=== PATIENT | female | born 1940 | race Caucasian/White ===

== ENCOUNTER 2018-01-24 00:56 | Inpatient (IN) | payer OTHER ==
[2018-01-24 01:30] VITALS: BMI 24.0
[2018-01-24] MEDS ORDERED: morphine CARPU-JECT 2 MG/1 ML DISP.SYRIN IVPUSH ONE (01:39)
[2018-01-24] MEDS ORDERED: ONDANSETRON 4 MG/2 ML VIAL IVPUSH ONE (01:39)
--- NOTE | 2018-01-24 01:39 | PDOC ---
History of Present Illness - General Chief Complaint: Pain Stated Complaint: ABD PAIN Time Seen by Provider: 01/24/18 01:37 History Source: Patient Exam Limitations: No Limitations - History of Present Illness Initial Comments: 01/24/18 01:45 Best Contact: PCP: Pmhx:IDDM Pshx: Laparoscopic cholecystectomy, CABG, Allergies:NKDA LMP:N/A 77-year-old female presents to the ER complaining of lower abdominal pain since 1700 hrs. while at rest. Pain is described as 10/10 constant nonradiating discomfort without fever, chills, nausea/vomiting, chest pain, shortness of breath, flank pains, urinary symptoms. There are no alleviating or exacerbating factors. Past History - Past Medical History Allergies/Adverse Reactions: Allergies Allergy/AdvReac Type Severity Reaction Status Date / Time No Known Allergies Allergy Verified 01/24/18 01:30 Home Medications: Ambulatory Orders Aspirin [ASA -] 81 mg PO DAILY 01/24/18 Insulin Glargine,Hum.rec.anlog [Lantus] 40 unit SQ HS 01/24/18 Metformin HCl [Metformin HCl ER] 1,000 mg PO DAILY 01/24/18 Metoprolol Tartrate 25 mg PO DAILY 01/24/18 Simvastatin 20 mg PO DAILY 01/24/18 Cancer: Yes (breast cancer 20 yrs ago) COPD: No HTN: Yes - Suicide/Smoking/Psychosocial Hx Smoking History: Never smoked Have you smoked in the past 12 months: No Information on smoking cessation initiated: No Hx Alcohol Use: No Drug/Substance Use Hx: No Review of Systems - Review of Systems Able to Perform ROS?: Yes Comments:: 01/24/18 01:46 CONSTITUTIONAL: Absent: fever, chills, diaphoresis, generalized weakness, malaise, loss of appetite HEENT: Absent: rhinorrhea, nasal congestion, throat pain, throat swelling, difficulty swallowing, mouth swelling, ear pain, eye pain, visual Changes CARDIOVASCULAR: Absent: chest pain, loss of consciousness, palpitations, irregular heart rate, peripheral edema RESPIRATORY: Absent: cough, shortness of breath, dyspnea with exertion, orthopnea, wheezing, stridor, hemoptysis GASTROINTESTINAL: +Lower abd pain Absent: abdominal distension, nausea, vomiting, diarrhea, constipation, melena , hematochezia GENITOURINARY: Absent: dysuria, frequency, urgency, hesitancy, hematuria, flank pain, genital pain MUSCULOSKELETAL: Absent: myalgia, arthralgia, joint swelling SKIN: Absent: rash, itching, pallor HEMATOLOGIC/IMMUNOLOGIC: Absent: easy bleeding, easy bruising, lymphadenopathy, frequent infections ENDOCRINE: Absent: unexplained weight gain, unexplained weight loss, heat intolerance, cold intolerance NEUROLOGIC: Absent: headache, focal weakness or paresthesias, dizziness, unsteady gait, seizure, mental status changes, bladder or bowel incontinence Is the patient limited Irish proficient: No *Physical Exam - Vital Signs Last Vital Signs Temp Pulse Resp BP Pulse Ox 97.3 F L 96 H 22 165/90 97 01/24/18 01:20 01/24/18 01:20 01/24/18 01:20 01/24/18 01:20 01/24/18 01:20 - Physical Exam Comments: 01/24/18 01:46 GENERAL: Well developed, well nourished. Awake and alert. No acute distress. HEENT: Normocephalic, atraumatic. PERRLA, EOMI. No conjunctival pallor. Sclera are non- icteric. Moist mucous membranes. Oropharynx is clear. NECK: Supple. Full ROM. No JVD. Carotid pulses 2+ and symmetric, without bruits. No thyromegaly. No lymphadenopathy. CARDIOVASCULAR: Regular rate and rhythm. No murmurs, rubs, or gallops. Distal pulses are 2+ and symmetric. PULMONARY: No evidence of respiratory distress. Lungs clear to auscultation bilaterally. No wheezing, rales or rhonchi. ABDOMINAL: +Lower abd pain on palp Soft. Non-distended. No rebound or guarding. No organomegaly. Normoactive bowel sounds. MUSCULOSKELETAL Normal range of motion at all joints. No bony deformities or tenderness. No CVA tenderness. EXTREMITIES: No cyanosis. No clubbing. No edema. No calf tenderness. SKIN: Warm and dry. Normal capillary refill. No rashes. No jaundice. ED Treatment Course - LABORATORY CBC & Chemistry Diagram: 01/24/18 01:43 01/24/18 01:43 - RADIOLOGY Radiograph Interpretation: 01/24/18 03:39 CT abd/pelvis with po/iv contrast: Impression: Small bowel obstruction with possible left lower quadrant transition point but no free air or abscess. Mild cystitis Progress Note - Progress Note Progress Note: 0550hrs: Called [employer]/surgery home improvement contractor [phone] 0552hrs: Microblogged hospitalist for admission 0608hrs: Spoke to Dr. Joy/Surgery home improvement contractor *DC/Admit/Observation/Transfer Diagnosis at time of Disposition: SBO (small bowel obstruction) - Discharge Dispostion Condition at time of disposition: Guarded Admit: Yes - Referrals Referrals: Kris Moreno MD [Primary Care Provider] - - Patient Instructions - Post Discharge Activity
[2018-01-24] MEDS ORDERED: SODIUM CHLORIDE 1,000 ML IV SCH (01:45)
[2018-01-24] MEDS ORDERED: ONDANSETRON 4 MG/2 ML VIAL ONE ×2 (01:50→05:56)
[2018-01-24] MEDS ORDERED: morphine SULFATE 4 MG/ML VIAL ONE ×2 (01:50→09:32)
[2018-01-24 01:57] LABS: BASO % 0.3 % (0-2.0); EOS % 2.6 % (0-4.5); HEMATOCRIT 36.6 % (32.4-45.2); HEMOGLOBIN 12.7 GM/dL (10.7-15.3); LYMPH % 13.2 % (8-40); MCH 28.8 pg (25.7-33.7); MCHC 34.7 g/dl (32.0-36.0); MEAN CELL VOLUME 83.2 fl (80-96); MEAN PLT VOLUME 8.4 fl (7.5-11.1); MONO % 4.7 % (3.8-10.2); NEUT % 79.2 % (42.8-82.8); PLATELET COUNT 132 K/MM3 (134-434); RDW 13.4 % (11.6-15.6); WHITE BLOOD COUNT 8.6 K/mm3 (4.0-10.0)
[2018-01-24 02:21] LABS: ALBUMIN 4.1 g/dl (3.4-5.0); ALK PHOS 69 U/L (45-117); ANION GAP 10 (8-16); BILIRUBIN,TOTAL 0.8 mg/dL (0.2-1.0); BLOOD UREA NITROGEN 15 mg/dL (7-18); CALCIUM 10.5 mg/dL (8.5-10.1); CHLORIDE 97 mmol/L (98-107); CO2 26 mmol/L (21-32); CREATININE 0.7 mg/dL (0.55-1.02); SGOT/AST 22 U/L (15-37); SGPT/ALT 37 U/L (12-78); SODIUM 133 mmol/L (136-145); TOT PROT 7.6 g/dl (6.4-8.2)
[2018-01-24 02:23] LABS: GLUCOSE,RANDOM 352 mg/dL (74-106)
[2018-01-24] MEDS ORDERED: INSULIN REGULAR HUMAN 100 UNITS/ML *VIAL IVPUSH ONE (02:37)
[2018-01-24] MEDS ORDERED: INSULIN REGULAR HUMAN 100 UNITS/ML *VIAL ONE (02:40)
[2018-01-24 05:47] LABS: URINE APPEARANCE CLEAR; URINE BILIRUBIN NEGATIVE (<2.0 mg/dL); URINE COLOR LTYELLOW; URINE GLUCOSE (UA) 3+ (NEGATIVE); URINE KETONE 1+ (NEGATIVE); URINE LEUK ESTERASE NEGATIVE (NEGATIVE); URINE NITRITE NEGATIVE (NEGATIVE); URINE PROTEIN NEGATIVE (NEGATIVE); URINE UROBILINOGEN NEGATIVE mg/dL (0.2-1.0)
[2018-01-24 05:57] LABS: EPI CELLS RARE /HPF (FEW); URINE BACTERIA RARE /hpf (NONE SEEN)
[2018-01-24] MEDS ORDERED: LIDOCAINE HCL 2% JELLY 10 ML CARTRIDGE ONE (06:02)
--- NOTE | 2018-01-24 07:38 | HP ---
CHIEF COMPLAINT: nausea, vomiting, abdominal pain PCP: Dr. Kris Moreno HISTORY OF PRESENT ILLNESS: This is a 77 year old female with PMHx of left breast cancer (s/p lumpectomy, chemo, radiation therapy in 1999), open heart surgery (2009), x2 (1973 ,1974), laproscopic ovarian cyst removal 1999, DM, hyperlipidemia, HTN, who presented to the ED with abdominal pain, nausea, vomiting that began yesterday at 5pm. The patient reports about 3 weeks ago her grandson had a stomach virus which she got a few days after him. She reports she recovered after only vomiting once. Yesterday afternoon she reports trying to alleviate her abdominal pain with gas medication that she ended up throwing up. She reports her last bowel movement was yesterday and it was small and soft. She also reports she passed gas this morning prior to my arrival. She denies any chest pain, diarrhea, headache, dizziness, numbness or tingling in extremities, urinary symptoms. ER course was notable for: (1) Temp 97.3, pulse 96, bp 165/90, resp 22, O2 97% on RA (2) platelets 132 (3) Na 133 (4) Chest X-ray with congestive changes, sternal sutures and clips and NGT with tip below the GE junction. (5) CTAP pending read Recent Travel: denies PAST MEDICAL HISTORY: as above PAST SURGICAL HISTORY: as above Social History: Smoking: denies Alcohol: denies Drugs: denies Family History: Allergies No Known Allergies Allergy (Verified 01/24/18 01:30) HOME MEDICATIONS: Home Medications Medication Instructions Recorded Aspirin [ASA -] 81 mg PO DAILY 01/24/18 Insulin Glargine,Hum.rec.anlog 40 unit SQ HS 01/24/18 [Lantus] Metformin HCl [Metformin HCl ER] 1,000 mg PO DAILY 01/24/18 Metoprolol Tartrate 25 mg PO DAILY 01/24/18 Simvastatin 20 mg PO DAILY 01/24/18 REVIEW OF SYSTEMS CONSTITUTIONAL: Absent: fever, chills, diaphoresis, generalized weakness, malaise, loss of appetite, weight change HEENT: Absent: rhinorrhea, nasal congestion, throat pain, throat swelling, difficulty swallowing, mouth swelling, ear pain, eye pain, visual changes CARDIOVASCULAR: Absent: chest pain, syncope, palpitations, irregular heart rate, lightheadedness , peripheral edema RESPIRATORY: Absent: cough, shortness of breath, dyspnea with exertion, orthopnea, wheezing, stridor, hemoptysis GASTROINTESTINAL: Nausea, vomiting, abdominal pain that began yesterday afternoon. Absent: abdominal distension, diarrhea, constipation, melena, hematochezia GENITOURINARY: Absent: dysuria, frequency, urgency, hesitancy, hematuria, flank pain, genital pain MUSCULOSKELETAL: Absent: myalgia, arthralgia, joint swelling, back pain, neck pain SKIN: Absent: rash, itching, pallor HEMATOLOGIC/IMMUNOLOGIC: Absent: easy bleeding, easy bruising, lymphadenopathy, frequent infections ENDOCRINE: Absent: unexplained weight gain, unexplained weight loss, heat intolerance, cold intolerance NEUROLOGIC: Absent: headache, focal weakness or paresthesias, dizziness, unsteady gait, seizure, mental status changes, bladder or bowel incontinence PSYCHIATRIC: Absent: anxiety, depression, suicidal or homicidal ideation, hallucinations. PHYSICAL EXAMINATION Vital Signs - 24 hr 01/24/18 01/24/18 01:20 07:24 Temperature 97.3 F L 97.9 F Pulse Rate 96 H Pulse Rate [ 80 Left Radial] Respiratory 22 14 Rate Blood Pressure 165/90 Blood Pressure 125/62 [Right Arm] O2 Sat by Pulse 97 95 Oximetry (%) GENERAL: Awake, alert, and fully oriented, in no acute distress. HEAD: Normal with no signs of trauma. EYES: Pupils equal, round and reactive to light, extraocular movements intact, sclera anicteric, conjunctiva clear. No lid lag. EARS, NOSE, THROAT: NG tube in place, clear drainage. NECK: Normal range of motion, supple without lymphadenopathy LUNGS: Breath sounds equal, clear to auscultation bilaterally. No wheezes, and no crackles. No accessory muscle use. HEART: Regular rate and rhythm, normal S1 and S2 ABDOMEN: Soft, mild periumbilical tenderness. Normoactive bowel sounds MUSCULOSKELETAL: Normal range of motion at all joints. No bony deformities or tenderness. No CVA tenderness. UPPER EXTREMITIES: 2+ pulses, warm, well-perfused. No cyanosis. No clubbing. No peripheral edema. LOWER EXTREMITIES: 2+ pulses, warm, well-perfused. No calf tenderness. No peripheral edema. NEUROLOGICAL: Cranial nerves II-XII intact. Normal speech. Gait not observed PSYCHIATRIC: Cooperative. Good eye contact. Appropriate mood and affect. SKIN: Warm, dry, normal turgor, no rashes or lesions noted, normal capillary refill. Laboratory Results - last 24 hr 01/24/18 01/24/18 01/24/18 01:43 01:43 05:00 WBC 8.6 RBC 4.40 Hgb 12.7 Hct 36.6 MCV 83.2 MCH 28.8 MCHC 34.7 RDW 13.4 Plt Count 132 L MPV 8.4 Neutrophils % 79.2 Lymphocytes % 13.2 Monocytes % 4.7 Eosinophils % 2.6 Basophils % 0.3 Sodium 133 L Potassium 5.0 Chloride 97 L Carbon Dioxide 26 Anion Gap 10 BUN 15 Creatinine 0.7 Creat Clearance w eGFR > 60 Random Glucose 352 H* Calcium 10.5 H Total Bilirubin 0.8 AST 22 ALT 37 Alkaline Phosphatase 69 Total Protein 7.6 Albumin 4.1 Urine Color Ltyellow Urine Appearance Clear Urine pH 5.0 Ur Specific [place] 1.020 Urine Protein Negative Urine Glucose (UA) 3+ H Urine Ketones 1+ H Urine Blood 1+ H Urine Nitrite Negative Urine Bilirubin Negative Urine Urobilinogen Negative Ur Leukocyte Esterase Negative Urine WBC (Auto) 5 Urine RBC (Auto) 2 Ur Epithelial Cells Rare Urine Bacteria Rare Assessment: This is a 77 year old female with PMHx of left breast cancer (s/p lumpectomy, chemo, radiation therapy in 1999), open heart surgery (2009), c- section x2 (1973,1974), laproscopic ovarian cyst removal 1999, DM, hyperlipidemia, HTN, who presented to the ED with abdominal pain, nausea, vomiting that began yesterday at 5pm Plan: 1) SBO - Preliminary CTAP (nighthawk read): SBO with possible transition point in LLQ. No abscess or free air seen - Patient reports passing gas this AM, normoactive bowel sounds appreciated - NGT to suction, clear output - NPO - Pain management - IV fluids - F/u surgery consult 2) DM - BGM q4h - ISS q4h, modified as the patient is NPO; will start if BGM >201 3) HTN - Lopressor 5mg IVP q4h prn if SBP >160 - Will resume oral Lopressor once tolerating po 4) F/E/N: - IV fluids - NPO 5) Prophylaxis: - Hold all chemical DVT prophylaxis until evaluated by surgery - SCDs bilaterally 6) Dispo: - Requires continued inpatient care CODE STATUS: FULL CODE Visit type - Emergency Visit Emergency Visit: Yes ED Registration Date: 01/24/18 Care time: The patient presented to the Emergency Department on the above date and was hospitalized for further evaluation of their emergent condition. - New Patient This patient is new to me today: Yes Date on this admission: 01/24/18 - Critical Care Critical Care patient: No Hospitalist Screening - Colonoscopy Questionnaire Colonoscopy Questionnaire: Colonoscopy Questionnaire - Patient: 50 - 75 years old and never had a screening colonoscopy: Unknown History of colon or rectal polyps, or CA: Unknown History of IBD, Crohn's disease or UC: Unknown History of abdominal radiation therapy as a child: Unknown - Relative: 1 with colon or rectal CA, or polyps at age 60 or younger: Unknown Colon or rectal CA diagnosed at age 45 or younger: Unknown Multiple relatives with colon or rectal CA: Unknown - Outcome: Screening Result: Negative Screen
[2018-01-24] MEDS: SODIUM CHLORIDE 1,000 ML IV SCH ×3 (07:47→22:01)
[2018-01-24] MEDS: morphine SULFATE 4 MG/ML VIAL IVPUSH PRN ×2 (09:28→20:06)
--- NOTE | 2018-01-24 10:17 | CONSULT ---
Consult Consult Specialty:: general surgery Referred by:: Marisela Reason for Consultation:: Small bowel Obstruction - History of Present Illness Chief Complaint: abdominal pain and vomiting History of Present Illness: 77 yo female with PMH of left breast cancer (s/p lumpectomy, chemo, radiation therapy in 1999), open heart surgery (2009), x2 (1973,1974), laproscopic ovarian cyst removal 1999, DM, hyperlipidemia, HTN, presented with abdominal pain, nausea, vomiting that began the previous day. The patient reports about 3 weeks ago her grandson had a stomach virus which she got a few days after him. She reports she recovered after only vomiting once. Yesterday afternoon she reports trying to alleviate her abdominal pain with gas medication that she ended up throwing up. She reports her last bowel movement was yesterday and it was small and soft. She also reports she passed gas this morning prior to my arrival. CT scan done in the ED shows some dilatyed proximal SB loops with transition point in the left lower quadrant. We were asked to assess her. - History Source History Provided By: Patient, Medical Record Limitations to Obtaining History: No Limitations - Past Medical History Cardio/Vascular: Yes: HTN, Hyperlipdemia Endocrine: Yes: Diabetes Mellitus - Alcohol/Substance Use Hx Alcohol Use: No - Smoking History Smoking history: Never smoked Have you smoked in the past 12 months: No - Social History Place of : [facility] History of Recent Travel: No Home Medications - Allergies Allergies/Adverse Reactions: Allergies Allergy/AdvReac Type Severity Reaction Status Date / Time No Known Allergies Allergy Verified 01/24/18 01:30 - Home Medications Home Medications: Ambulatory Orders Aspirin [ASA -] 81 mg PO DAILY 01/24/18 Insulin Glargine,Hum.rec.anlog [Lantus] 40 unit SQ HS 01/24/18 Metformin HCl [Metformin HCl ER] 1,000 mg PO DAILY 01/24/18 Metoprolol Tartrate 25 mg PO DAILY 01/24/18 Simvastatin 20 mg PO DAILY 01/24/18 Review of Systems - Review of Systems Constitutional: denies: Chills, Fever Eyes: denies: Blind Spots, Recent Change in Vision HENT: denies: Difficult Swallowing, Throat Pain Neck: denies: Lumps, Swollen Glands Cardiovascular: denies: Chest Pain, Palpitations Respiratory: denies: Cough, SOB Gastrointestinal: reports: Abdominal Pain, Bloating, Indigestion, Nausea, Vomiting Genitourinary: reports: Burning, Dysuria Breasts: reports: No Symptoms Reported. denies: Pain Musculoskeletal: denies: Muscle Pain, Muscle Weakness Integumentary: denies: Lesions, Rash Neurological: denies: Change in LOC, Seizure, Syncope Endocrine: denies: Unexplained Weight Gain, Unexplained Weight Loss Hematology/Lymphatic: denies: Easily Bruised, Excessive Bleeding Psychiatric: denies: Anxiety, Depression Physical Exam Vital Signs: Vital Signs Temperature 97.9 F 01/24/18 07:24 Pulse Rate 80 01/24/18 07:24 Respiratory Rate 14 01/24/18 07:24 Blood Pressure 125/62 01/24/18 07:24 O2 Sat by Pulse Oximetry (%) 95 01/24/18 07:24 Vital Signs Period Temp Pulse Resp BP Sys/Shipley Pulse Ox Last 24 Hr 97.3 F-97.9 F 80-96 14-22 125-165/62-90 95-97 Intake & Output 01/23/18 01/24/18 01/24/18 23:59 07:59 15:59 Weight 140 lb Other: Height 5 ft 4 in Body Mass Index (BMI) 24.0 Weight Measurement Method Est/Stated by Patient Constitutional: Yes: Well Nourished, No Distress, Calm Eyes: Yes: Conjunctiva Clear, EOM Intact HENT: Yes: Atraumatic, Normocephalic Neck: Yes: Supple, Trachea Midline, Other (NGT in place) Cardiovascular: Yes: Regular Rate and Rhythm, S1, S2 Respiratory: Yes: Regular, CTA Bilaterally Gastrointestinal: Yes: Normal Bowel Sounds, Soft, Distention (mild distension). No: Vomiting ...Rectal Exam: Yes: Sphincter Tone Normal. No: Hemorrhoids/External, Induration, Inflammation, Mass Extremities: No: Cool, Cyanosis Edema: No Peripheral Pulses WNL: Yes Neurological: Yes: Alert, Oriented Psychiatric: Yes: Alert, Oriented Labs: CBC, BMP 01/24/18 01:43 01/24/18 01:43 Problem List - Problems (1) SBO (small bowel obstruction) Assessment/Plan: 77yo female MMP and multiple abdominal procedures presenting with 1 day of abdominal pain and vomiting. NPO and IVF hydration NGT decompression to LCWS Antiematic therapy Trend labs Abdominal xray to track progress glycemic control will follow for serial exams Thank you for the opportunity to participate in the care of this patient. Code(s): K56.609 - UNSP INTESTNL OBST, UNSP TO PARTIAL VERSUS COMPLETE OBST (2) Vomiting in adult patient Code(s): R11.10 - VOMITING, UNSPECIFIED (3) Diabetes Code(s): E11.9 - TYPE 2 DIABETES MELLITUS WITHOUT COMPLICATIONS Qualifiers: Diabetes mellitus type: type 2 Diabetes mellitus complication status: without complication (4) HTN (hypertension) Code(s): I10 - ESSENTIAL (PRIMARY) HYPERTENSION (5) HLD (hyperlipidemia) Code(s): E78.5 - HYPERLIPIDEMIA, UNSPECIFIED
--- NOTE | 2018-01-24 10:42 | EKG ---
Test Reason : Blood Pressure : / mmHG Vent. Rate : 083 BPM Atrial Rate : 083 BPM P-R Int : 142 ms QRS Dur : 122 ms QT Int : 392 ms P-R-T Axes : 060 091 -14 degrees QTc Int : 460 ms NORMAL SINUS RHYTHM RIGHT BUNDLE BRANCH BLOCK CANNOT RULE OUT INFERIOR INFARCT , AGE UNDETERMINED T WAVE ABNORMALITY, CONSIDER LATERAL ISCHEMIA ABNORMAL ECG NO PREVIOUS ECGS AVAILABLE Confirmed by BETH WALKER, ARINA ([id number]) on 01/24/2018 10:42:01 AM Referred By: Confirmed By:ARINA CAMPOS MD
[2018-01-24] MEDS: INSULIN SLIDING SCALE (NOVOLOG) 1 VIAL SQ SCH ×4 (12:18→21:51)
[2018-01-25] MEDS: morphine SULFATE 4 MG/ML VIAL IVPUSH PRN ×5 (00:13→23:22)
[2018-01-25] MEDS: INSULIN SLIDING SCALE (NOVOLOG) 1 VIAL SQ SCH ×6 (01:12→21:58)
[2018-01-25 07:55] LABS: HEMATOCRIT 31.1 % (32.4-45.2); HEMOGLOBIN 10.7 GM/dL (10.7-15.3); MCH 28.4 pg (25.7-33.7); MCHC 34.4 g/dl (32.0-36.0); MEAN CELL VOLUME 82.5 fl (80-96); MEAN PLT VOLUME 8.6 fl (7.5-11.1); PLATELET COUNT 110 K/MM3 (134-434); RBC 3.77 M/mm3 (3.60-5.2); RDW 13.7 % (11.6-15.6); WHITE BLOOD COUNT 6.3 K/mm3 (4.0-10.0)
[2018-01-25 08:15] LABS: ANION GAP 7 (8-16); BLOOD UREA NITROGEN 10 mg/dL (7-18); CALCIUM 8.8 mg/dL (8.5-10.1); CHLORIDE 105 mmol/L (98-107); CO2 29 mmol/L (21-32); GLUCOSE,RANDOM 201 mg/dL (74-106); MAGNESIUM 1.3 mg/dL (1.8-2.4); POTASSIUM 3.5 mmol/L (3.5-5.1); SODIUM 141 mmol/L (136-145)
[2018-01-25 08:21] LABS: ALK PHOS 54 U/L (45-117); BILIRUBIN,TOTAL 0.5 mg/dL (0.2-1.0); CREATININE 0.4 mg/dL (0.55-1.02); SGOT/AST 32 U/L (15-37); SGPT/ALT 31 U/L (12-78); TOT PROT 5.7 g/dl (6.4-8.2)
[2018-01-25] MEDS ORDERED: ACETAMINOPHEN 1000 MG/100 ML VIAL (NON FORMULARY) IVPB ONE (11:21)
[2018-01-25] MEDS: SODIUM CHLORIDE 1,000 ML IV SCH (11:29)
[2018-01-25] MEDS: METOPROLOL TARTRATE 5 MG/5 ML VIAL IVPUSH PRN (11:44)
[2018-01-25] MEDS ORDERED: PATIENT'S OWN MEDICATION (NON-FORMULARY) (Combigan 0.2%-0.5% Eye Drops 1 DROP) OU SCH (12:00)
--- NOTE | 2018-01-25 12:09 | PN ---
Progress Note (short form) - Note Progress Note: Subjective: The patient was seen and examined at the bedside, she reports headache today. She states she passed gas this morning. Abdominal x-ray with no sign of small bowel obstruction Last BM thursday morning Current Medications Generic Name Dose Route Start Last Admin Trade Name Freq PRN Reason Stop Dose Admin Sodium Chloride 1,000 mls @ 100 mls/hr 01/24/18 07:45 01/25/18 11:29 Normal Saline - IV 100 mls/hr ASDIR MARK Administration Insulin Aspart 1 vial 01/24/18 10:00 01/25/18 05:46 Novolog Vial Sliding Scale - SQ Not Given Q4HPO MARK Protocol Metoprolol Tartrate 5 mg 01/24/18 07:35 01/25/18 11:44 Lopressor Injection - IVPUSH 5 mg Q4H PRN Administration HYPERTENSION Morphine Sulfate 1 mg 01/24/18 09:07 01/25/18 05:40 Morphine Sulfate IVPUSH 1 mg Q4H PRN Administration PAIN LEVEL 6-10 Non-Formulary Medication 1 drop 01/25/18 12:00 Combigan 0.2%-0.5% Eye Drops OU BID MARK Non-Formulary Medication 1 drop 01/25/18 22:00 Lumigan OU HS MARK Objective: Vital Signs Period Temp Pulse Resp BP Sys/Shipley Pulse Ox Last 24 Hr 98.1 F-98.5 F 78-87 -18 128-173/68-83 98 Physical Exam: General: NAD, A&Ox3 Lungs: CTA bilaterally Heart: RRR, S1S2 Abd: Soft, non-tender, non-distended. Hypoactive bowel sounds CBCD WBC 6.3 K/mm3 (4.0-10.0) 01/25/18 06:35 RBC 3.77 M/mm3 (3.60-5.2) 01/25/18 06:35 Hgb 10.7 GM/dL (10.7-15.3) D 01/25/18 06:35 Hct 31.1 % (32.4-45.2) L D 01/25/18 06:35 MCV 82.5 fl (80-96) 01/25/18 06:35 MCHC 34.4 g/dl (32.0-36.0) 01/25/18 06:35 RDW 13.7 % (11.6-15.6) 01/25/18 06:35 Plt Count 110 K/MM3 (134-434) L 01/25/18 06:35 MPV 8.6 fl (7.5-11.1) 01/25/18 06:35 CMP Sodium 141 mmol/L (136-145) 01/25/18 06:35 Potassium 3.5 mmol/L (3.5-5.1) 01/25/18 06:35 Chloride 105 mmol/L (98-107) 01/25/18 06:35 Carbon Dioxide 29 mmol/L (21-32) 01/25/18 06:35 Anion Gap 7 (8-16) L 01/25/18 06:35 BUN 10 mg/dL (7-18) 01/25/18 06:35 Creatinine 0.4 mg/dL (0.55-1.02) L 01/25/18 06:35 Creat Clearance w eGFR > 60 (>60) 01/25/18 06:35 Random Glucose 201 mg/dL (74-106) H 01/25/18 06:35 Calcium 8.8 mg/dL (8.5-10.1) 01/25/18 06:35 Total Bilirubin 0.5 mg/dL (0.2-1.0) D 01/25/18 06:35 AST 32 U/L (15-37) 01/25/18 06:35 ALT 31 U/L (12-78) 01/25/18 06:35 Alkaline Phosphatase 54 U/L (45-117) 01/25/18 06:35 Total Protein 5.7 g/dl (6.4-8.2) L 01/25/18 06:35 Albumin 3.0 g/dl (3.4-5.0) L 01/25/18 06:35 Assessment: This is a 77 year old female with PMHx of left breast cancer (s/p lumpectomy, chemo, radiation therapy in 1999), open heart surgery (2009), c- section x2 (1973,1974), laproscopic ovarian cyst removal 1999, DM, hyperlipidemia, HTN, who presented to the ED with abdominal pain, nausea, vomiting that began yesterday at 5pm Plan: 1) SBO - Abd x-ray today shows its resolved - CTAP: Dilated distal small bowel loops with fecalosis measuring up to 3cm in diameter consistent with distal small bowel obstruction - Patient reports passing gas this AM, hypoactive bowel sounds - NGT to suction, brown fecal smelling output, 400cc output today so far - NPO - Pain management - IV fluids - Appreciate surgery consult 2) DM - BGM q4h - ISS q4h, modified as the patient is NPO; will start if BGM >201 3) HTN - Lopressor 5mg IVP q4h prn if SBP >160 - Will resume oral Lopressor once tolerating po 4) F/E/N: - IV fluids - NPO 5) Prophylaxis: - Hold all chemical DVT prophylaxis until evaluated by surgery - SCDs bilaterally 6) Dispo: - Requires continued inpatient care CODE STATUS: FULL CODE Visit type - Emergency Visit Emergency Visit: Yes ED Registration Date: 01/24/18 Care time: The patient presented to the Emergency Department on the above date and was hospitalized for further evaluation of their emergent condition. - New Patient This patient is new to me today: No - Critical Care Critical Care patient: No
--- NOTE | 2018-01-25 12:47 | PN ---
Progress Note, Physician Chief Complaint: vomiting History of Present Illness: 77 yo female with PMH of left breast cancer (s/p lumpectomy, chemo, radiation therapy in 1999), open heart surgery (2009), x2 (1973,1974), laproscopic ovarian cyst removal 1999, DM, hyperlipidemia, HTN, presented with abdominal pain, nausea, vomiting that began the previous day. NGT is draining feculant material, she has not had regular flatus or BM yet. - Current Medication List Current Medications: Active Medications Sodium Chloride (Normal Saline -) 1,000 mls @ 100 mls/hr IV ASDIR MARK Last Admin: 01/25/18 11:29 Dose: 100 mls/hr Insulin Aspart (Novolog Vial Sliding Scale -) 1 vial SQ Q4HPO MARK PRN Reason: Protocol Last Admin: 01/25/18 12:15 Dose: Not Given Metoprolol Tartrate (Lopressor Injection -) 5 mg IVPUSH Q4H PRN PRN Reason: HYPERTENSION Last Admin: 01/25/18 11:44 Dose: 5 mg Morphine Sulfate (Morphine Sulfate) 1 mg IVPUSH Q4H PRN PRN Reason: PAIN LEVEL 6-10 Last Admin: 01/25/18 05:40 Dose: 1 mg Non-Formulary Medication (Combigan 0.2%-0.5% Eye Drops) 1 drop OU BID MARK Non-Formulary Medication (Lumigan) 1 drop OU HS MARK - Objective Vital Signs: Vital Signs Temperature 98.2 F 01/25/18 10:00 Pulse Rate 81 01/25/18 11:44 Respiratory Rate 18 01/25/18 10:00 Blood Pressure 173/83 01/25/18 11:44 O2 Sat by Pulse Oximetry (%) 98 01/24/18 21:00 Vital Signs Period Temp Pulse Resp BP Sys/Shipley Pulse Ox Last 24 Hr 98.1 F-98.5 F 78-87 - 128-173/68-83 98 Intake & Output 01/24/18 01/25/18 01/25/18 23:59 07:59 15:59 Intake Total 400 1200 Output Total 250 400 Balance 150 800 Intake: IV 400 1200 Normal Saline - 1,000 ml 400 1200 @ 100 mls/hr IV ASDIR MARK Rx#:[id number] Oral 0 Output: Gastric Drainage 250 400 Other: Voiding Method Toilet Toilet # Unmeasured Voids Void 500 300 Bowel Movement No No Constitutional: Yes: Well Nourished, No Distress, Calm Eyes: Yes: Conjunctiva Clear, EOM Intact HENT: Yes: Atraumatic, Normocephalic Neck: Yes: Supple, Trachea Midline Cardiovascular: Yes: Regular Rate and Rhythm, S1, S2 Respiratory: Yes: Regular, CTA Bilaterally Gastrointestinal: Yes: Normal Bowel Sounds, Soft, Other (NGT in place feculant output.). No: Distention, Tenderness, Tenderness, Epigastrium, Tenderness, Rebound ...Rectal Exam: Yes: Deferred Genitourinary: No: CVA Tenderness - Left, CVA Tenderness - Right Extremities: Yes: Cool, Cyanosis Edema: No Peripheral Pulses WNL: Yes Peripheral Pulses: Left Doralis Pedis: 2+, Right Dorsalis Pedis: 2+ Integumentary: No: Jaundice, Rash Neurological: Yes: Alert, Oriented Psychiatric: Yes: Alert, Oriented Labs: CBC, BMP 01/25/18 06:35 01/25/18 06:35 Problem List - Problems (1) SBO (small bowel obstruction) Assessment/Plan: 77yo female MMP and multiple abdominal procedures presenting with 1 day of abdominal pain and vomiting. NPO and IVF hydration NGT decompression to LCWS Antiematic therapy Trend labs Abdominal xray to track progress glycemic control will follow for serial exams Code(s): K56.609 - UNSP INTESTNL OBST, UNSP TO PARTIAL VERSUS COMPLETE OBST (2) Vomiting in adult patient Code(s): R11.10 - VOMITING, UNSPECIFIED (3) Diabetes Code(s): E11.9 - TYPE 2 DIABETES MELLITUS WITHOUT COMPLICATIONS Qualifiers: Diabetes mellitus type: type 2 Diabetes mellitus complication status: without complication (4) HTN (hypertension) Code(s): I10 - ESSENTIAL (PRIMARY) HYPERTENSION (5) HLD (hyperlipidemia) Code(s): E78.5 - HYPERLIPIDEMIA, UNSPECIFIED
[2018-01-25] MEDS ORDERED: MAGNESIUM SULF 50% (8.12 MEQ/2 ML-1 GM VIAL) IVPB ONE (12:55)
[2018-01-25] MEDS ORDERED: MAGNESIUM SULFATE IN WATER 2 GM/50 ML IVPB IVPB ONE (13:30)
[2018-01-25] MEDS ORDERED: POTASSIUM PHOSPHATE 15 MM in SODIUM CHLORIDE 250 ML IVPB ONE (14:00)
[2018-01-25] MEDS: TIMOLOL 0.5% OPHTHALMIC SOL 5 ML BOTTLE OU SCH ×2 (14:53→21:57)
[2018-01-25] MEDS: BRIMONIDINE TARTRATE 0.2% OPHTHALMIC 5 ML BOTTLE OU SCH ×2 (14:54→21:57)
[2018-01-25] MEDS ORDERED: PT OWN MED DRAWER 7, Y5N ONE ×2 (15:19→21:48)
[2018-01-25] MEDS: TETRACAINE/BENZOCAINE/BUTAMBEN 20 GM SPR TP SCH (17:23)
[2018-01-25] MEDS: LATANOPROST 0.005% OPHTH SOLN 2.5ML BOTTLE OU SCH (21:57)
[2018-01-26] MEDS: INSULIN SLIDING SCALE (NOVOLOG) 1 VIAL SQ SCH ×6 (02:54→22:10)
[2018-01-26] MEDS: morphine SULFATE 4 MG/ML VIAL IVPUSH PRN ×4 (02:57→21:55)
[2018-01-26] MEDS: SODIUM CHLORIDE 1,000 ML IV SCH (06:44)
[2018-01-26 07:49] LABS: BASO % 0.4 % (0-2.0); EOS % 7.4 % (0-4.5); HEMATOCRIT 33.1 % (32.4-45.2); HEMOGLOBIN 11.4 GM/dL (10.7-15.3); LYMPH % 23.7 % (8-40); MCH 28.4 pg (25.7-33.7); MCHC 34.4 g/dl (32.0-36.0); MEAN CELL VOLUME 82.7 fl (80-96); MEAN PLT VOLUME 7.9 fl (7.5-11.1); MONO % 11.1 % (3.8-10.2); NEUT % 57.4 % (42.8-82.8); PLATELET COUNT 122 K/MM3 (134-434); RDW 13.3 % (11.6-15.6)
[2018-01-26 08:49] LABS: CHLORIDE 108 mmol/L (98-107); POTASSIUM 3.8 mmol/L (3.5-5.1); SODIUM 143 mmol/L (136-145)
[2018-01-26] MEDS ORDERED: ACETAMINOPHEN 1000 MG/100 ML VIAL (NON FORMULARY) IVPB ONE (09:00)
[2018-01-26 09:09] LABS: ALK PHOS 55 U/L (45-117); ANION GAP 6 (8-16); BLOOD UREA NITROGEN 10 mg/dL (7-18); CO2 29 mmol/L (21-32); CREATININE 0.4 mg/dL (0.55-1.02); GLUCOSE,RANDOM 130 mg/dL (74-106); MAGNESIUM 1.5 mg/dL (1.8-2.4); PHOSPHOROUS 2.1 mg/dL (2.5-4.9); SGOT/AST 21 U/L (15-37); SGPT/ALT 24 U/L (12-78); TOT PROT 5.9 g/dl (6.4-8.2)
--- NOTE | 2018-01-26 09:26 | PN ---
Physical Exam: SUBJECTIVE: Patient seen and examined. She has some discomfort from the NGT. Denies vomiting, abd pain. Daughter at bedside. OBJECTIVE: Vital Signs Period Temp Pulse Resp BP Sys/Shipley Pulse Ox Last 24 Hr 98.2 F-99.0 F 71-82 18-18 113-173/53-89 95 PE Neuro: alert, awake, cn 2-12intact HEENT: NGT brown outpt Pulm: CTAB CV: s1 s2 rrr no mrg Abd: s nt + bS Ext: warm, no le edema Laboratory Results - last 24 hr 01/26/18 06:15 WBC 5.0 RBC 4.00 Hgb 11.4 Hct 33.1 MCV 82.7 MCH 28.4 MCHC 34.4 RDW 13.3 Plt Count 122 L MPV 7.9 Neutrophils % 57.4 D Lymphocytes % 23.7 D Monocytes % 11.1 H D Eosinophils % 7.4 H D Basophils % 0.4 POC Glucometer Active Medications Generic Name Dose Route Start Last Admin Trade Name Nabor PRN Reason Stop Dose Admin Acetaminophen 1,000 mg 01/26/18 09:00 Ofirmev Injection - IVPB 01/26/18 09:01 ONCE ONE Benzocaine/Butamben/Tetracaine HCl 1 spray 01/25/18 16:00 01/25/18 17:23 Cetacaine [place] - TP 1 spray DAILY MARK Administration Benzocaine/Menthol 1 each 01/25/18 14:50 Cepacol Lozenge - MM PRN PRN SORE THROAT Brimonidine Tartrate 1 drop 01/25/18 13:00 01/25/18 21:57 Alphagan 0.2% - OU 1 drop BID MARK Administration Sodium Chloride 1,000 mls @ 100 mls/hr 01/24/18 07:45 01/26/18 06:44 Normal Saline - IV 100 mls/hr ASDIR MARK Administration Insulin Aspart 1 vial 01/24/18 10:00 01/26/18 05:49 Novolog Vial Sliding Scale - SQ Not Given Q4HPO MARK Protocol Latanoprost 1 drop 01/25/18 22:00 01/25/18 21:57 Xalatan 0.005% Eye Drops - OU 1 drop HS MARK Administration Metoprolol Tartrate 5 mg 01/24/18 07:35 01/25/18 11:44 Lopressor Injection - IVPUSH 5 mg Q4H PRN Administration HYPERTENSION Morphine Sulfate 1 mg 01/24/18 09:07 01/26/18 02:57 Morphine Sulfate IVPUSH 1 mg Q4H PRN Administration PAIN LEVEL 6-10 Timolol Maleate 1 drop 01/25/18 13:00 01/25/18 21:57 Timoptic 0.5% OU 1 drop BID MARK Administration Assessment: 77 year old female with PMHx of left breast cancer (s/p lumpectomy, chemo, radiation therapy in 1999), open heart surgery (2009), x2 (1973 ,1974), laproscopic ovarian cyst removal 1999, DM, hyperlipidemia, HTN, admitted with abdominal pain, nausea, vomiting. Plan: 1. SBO - Repeat abd xray today, ?sbo not resolved - Increase outpt overnight, maintain NGT to suction - NPO - Pain management - IV fluids - Will discuss further imaging with surgery 2. DM II - BGM ACHS - ISS q4h, modified as the patient is NPO; will start if BGM >201 3. HTN - Lopressor 5mg IVP q4h prn if SBP >160 - Will resume oral Lopressor once tolerating po 4. DVT ppx - Hold all chemical DVT prophylaxis until evaluated by surgery - SCDs bilaterally CODE STATUS: FULL CODE Visit type - Emergency Visit Emergency Visit: Yes ED Registration Date: 01/24/18 Care time: The patient presented to the Emergency Department on the above date and was hospitalized for further evaluation of their emergent condition. - New Patient This patient is new to me today: Yes Date on this admission: 01/26/18 - Critical Care Critical Care patient: No
[2018-01-26] MEDS ORDERED: POTASSIUM PHOSPHATE 15 MM in SODIUM CHLORIDE 250 ML IVPB ONE (10:00)
[2018-01-26] MEDS ORDERED: PT OWN MED DRAWER 7, Y5N ONE ×3 (10:18→22:56)
[2018-01-26] MEDS: TETRACAINE/BENZOCAINE/BUTAMBEN 20 GM SPR TP SCH (10:28)
[2018-01-26] MEDS: METOPROLOL TARTRATE 5 MG/5 ML VIAL IVPUSH PRN ×2 (10:28→22:49)
[2018-01-26] MEDS: TIMOLOL 0.5% OPHTHALMIC SOL 5 ML BOTTLE OU SCH ×2 (10:29→22:01)
[2018-01-26] MEDS: BRIMONIDINE TARTRATE 0.2% OPHTHALMIC 5 ML BOTTLE OU SCH ×2 (10:29→22:01)
[2018-01-26] MEDS: BENZOCAINE/MENTH/CETYLPYRD CL 1 EACH LOZENGE MM PRN (10:29)
[2018-01-26] MEDS: MAGNESIUM 1GM/D5W 100ML - 100 ML IVPB IVPB SCH ×2 (12:17→13:44)
--- NOTE | 2018-01-26 13:50 | PN ---
Progress Note, Physician Chief Complaint: vomiting History of Present Illness: 77 yo female with PMH of left breast cancer (s/p lumpectomy, chemo, radiation therapy in 1999), open heart surgery (2009), x2 (1973,1974), laproscopic ovarian cyst removal 1999, DM, hyperlipidemia, HTN, presented with abdominal pain, nausea, vomiting that began the previous day. NGT is draining feculant material, she has not had regular flatus or BM yet. - Current Medication List Current Medications: Active Medications Benzocaine/Butamben/Tetracaine HCl (Cetacaine [place] -) 1 spray TP DAILY [facility] Last Admin: 01/26/18 10:28 Dose: 1 spray Benzocaine/Menthol (Cepacol Lozenge -) 1 each MM PRN PRN PRN Reason: SORE THROAT Last Admin: 01/26/18 10:29 Dose: 1 each Brimonidine Tartrate (Alphagan 0.2% -) 1 drop OU BID [facility] Last Admin: 01/26/18 10:29 Dose: 1 drop Sodium Chloride (Normal Saline -) 1,000 mls @ 100 mls/hr IV ASDIR MARK Last Admin: 01/26/18 06:44 Dose: 100 mls/hr Potassium Phosphate 15 mm/ (Sodium Chloride) 255 mls @ 62.5 mls/hr IVPB ONCE ONE Stop: 01/26/18 14:04 Insulin Aspart (Novolog Vial Sliding Scale -) 1 vial SQ Q4HPO MARK PRN Reason: Protocol Last Admin: 01/26/18 12:20 Dose: Not Given Latanoprost (Xalatan 0.005% Eye Drops -) 1 drop OU HS [facility] Last Admin: 01/25/18 21:57 Dose: 1 drop Metoprolol Tartrate (Lopressor Injection -) 5 mg IVPUSH Q4H PRN PRN Reason: HYPERTENSION Last Admin: 01/26/18 10:28 Dose: 5 mg Morphine Sulfate (Morphine Sulfate) 1 mg IVPUSH Q4H PRN PRN Reason: PAIN LEVEL 6-10 Last Admin: 01/26/18 09:04 Dose: 1 mg Timolol Maleate (Timoptic 0.5%) 1 drop OU BID MARK Last Admin: 01/26/18 10:29 Dose: 1 drop - Objective Vital Signs: Vital Signs Temperature 98.2 F 01/26/18 10:00 Pulse Rate 65 01/26/18 13:02 Respiratory Rate 18 01/26/18 10:00 Blood Pressure 136/61 01/26/18 13:02 O2 Sat by Pulse Oximetry (%) 95 01/25/18 21:00 Vital Signs Period Temp Pulse Resp BP Sys/Shipley Pulse Ox Last 24 Hr 98.2 F-98.9 F 65-82 18-18 113-192/53-89 95 Intake & Output 01/25/18 01/26/18 01/26/18 23:59 07:59 15:59 Intake Total 1450 700 Output Total 725 900 Balance 725 -200 Intake: IV 1000 700 Normal Saline - 1,000 ml 1000 700 @ 100 mls/hr IV ASDIR MARK Rx#:[id number] IVPB 450 Output: Gastric Drainage 725 900 Other: Voiding Method Toilet # Unmeasured Voids Void 2 Constitutional: Yes: Well Nourished, No Distress, Calm Eyes: Yes: Conjunctiva Clear, EOM Intact HENT: Yes: Atraumatic, Normocephalic Neck: Yes: Supple, Trachea Midline Cardiovascular: Yes: Regular Rate and Rhythm, S1, S2 Respiratory: Yes: Regular, CTA Bilaterally Gastrointestinal: Yes: Normal Bowel Sounds, Soft, Abdomen, Obese, Distention ( minimal), Tenderness ...Rectal Exam: Yes: Deferred Genitourinary: No: CVA Tenderness - Left, CVA Tenderness - Right Extremities: No: Cool, Cyanosis Edema: No Peripheral Pulses WNL: Yes Peripheral Pulses: Left Doralis Pedis: 2+, Right Dorsalis Pedis: 2+ Wound/Incision: Yes: Clean/Dry, Well Approximated Neurological: Yes: Alert, Oriented Psychiatric: Yes: Alert, Oriented Labs: CBC, BMP 01/26/18 06:15 01/26/18 06:15 - ....Imaging X-ray: Report Reviewed, Image Reviewed (non obstructive pattern, NGT in stomach) Problem List - Problems (1) SBO (small bowel obstruction) Assessment/Plan: 77yo female MMP and multiple abdominal procedures presenting with 1 day of abdominal pain and vomiting. NGT still very high output 800-900 per shift. No signs of peritonitis. Will allow 2 more days to resolve this obstruction before considering surgery. NPO and IVF hydration NGT decompression to LCWS Antiematic therapy Trend labs Abdominal xray to track progress glycemic control will follow for serial exams Code(s): K56.609 - UNSP INTESTNL OBST, UNSP TO PARTIAL VERSUS COMPLETE OBST (2) Vomiting in adult patient Code(s): R11.10 - VOMITING, UNSPECIFIED (3) Diabetes Code(s): E11.9 - TYPE 2 DIABETES MELLITUS WITHOUT COMPLICATIONS Qualifiers: Diabetes mellitus type: type 2 Diabetes mellitus complication status: without complication (4) HTN (hypertension) Code(s): I10 - ESSENTIAL (PRIMARY) HYPERTENSION (5) HLD (hyperlipidemia) Code(s): E78.5 - HYPERLIPIDEMIA, UNSPECIFIED
[2018-01-26] MEDS: LATANOPROST 0.005% OPHTH SOLN 2.5ML BOTTLE OU SCH (22:01)
[2018-01-27] MEDS ORDERED: PT OWN MED DRAWER 7, Y5N ONE ×3 (01:25→10:14)
[2018-01-27] MEDS: SODIUM CHLORIDE 1,000 ML IV SCH ×2 (04:20→09:58)
[2018-01-27] MEDS: INSULIN SLIDING SCALE (NOVOLOG) 1 VIAL SQ SCH ×5 (05:17→21:45)
[2018-01-27] MEDS: METOPROLOL TARTRATE 5 MG/5 ML VIAL IVPUSH PRN ×2 (06:16→16:38)
[2018-01-27 08:04] LABS: ANION GAP 9 (8-16); BILIRUBIN,TOTAL 0.6 mg/dL (0.2-1.0); BLOOD UREA NITROGEN 13 mg/dL (7-18); CALCIUM 8.7 mg/dL (8.5-10.1); CHLORIDE 106 mmol/L (98-107); CO2 25 mmol/L (21-32); CREATININE 0.4 mg/dL (0.55-1.02); GLUCOSE,RANDOM 173 mg/dL (74-106); MAGNESIUM 1.5 mg/dL (1.8-2.4); PHOSPHOROUS 2.6 mg/dL (2.5-4.9); POTASSIUM 3.7 mmol/L (3.5-5.1); SGOT/AST 15 U/L (15-37); SGPT/ALT 22 U/L (12-78); SODIUM 140 mmol/L (136-145)
[2018-01-27 08:05] LABS: ALK PHOS 56 U/L (45-117)
[2018-01-27] MEDS: morphine SULFATE 4 MG/ML VIAL IVPUSH PRN ×2 (08:50→17:59)
[2018-01-27] MEDS: BRIMONIDINE TARTRATE 0.2% OPHTHALMIC 5 ML BOTTLE OU SCH ×2 (10:05→21:44)
[2018-01-27] MEDS: TIMOLOL 0.5% OPHTHALMIC SOL 5 ML BOTTLE OU SCH ×2 (10:05→21:44)
[2018-01-27] MEDS: TETRACAINE/BENZOCAINE/BUTAMBEN 20 GM SPR TP SCH (10:05)
[2018-01-27] MEDS: BENZOCAINE/MENTH/CETYLPYRD CL 1 EACH LOZENGE MM PRN (10:08)
[2018-01-27] MEDS ORDERED: MAGNESIUM SULF 50% (8.12 MEQ/2 ML-1 GM VIAL) IVPB ONE (11:16)
--- NOTE | 2018-01-27 11:19 | PN ---
Physical Exam: SUBJECTIVE: Patient seen and examined. She has throat and head pain. no n/v. Canister was changed at 2am. OBJECTIVE: Vital Signs Period Temp Pulse Resp BP Sys/Shipley Pulse Ox Last 24 Hr 97.8 F-99.8 F 65-84 18-20 136-190/61-104 100 PE Neuro: alert, awake, cn 2-12intact HEENT: NGT brown, fecal smelling odor outpt Pulm: CTAB CV: s1 s2 rrr no mrg Abd: s nt + bS Ext: warm, no le edema Laboratory Results - last 24 hr 01/27/18 06:49 Sodium 140 Potassium 3.7 Chloride 106 Carbon Dioxide 25 Anion Gap 9 BUN 13 Creatinine 0.4 L Creat Clearance w eGFR > 60 POC Glucometer Random Glucose 173 H Calcium 8.7 Phosphorus 2.6 Magnesium 1.5 L Total Bilirubin 0.6 D AST 15 ALT 22 Alkaline Phosphatase 56 Total Protein 6.0 L Albumin 3.0 L Active Medications Generic Name Dose Route Start Last Admin Trade Name Freq PRN Reason Stop Dose Admin Benzocaine/Butamben/Tetracaine HCl 1 spray 01/25/18 16:00 01/27/18 10:05 Cetacaine [place] - TP 1 spray DAILY MARK Administration Benzocaine/Menthol 1 each 01/25/18 14:50 01/27/18 10:08 Cepacol Lozenge - MM 1 each PRN PRN Administration SORE THROAT Brimonidine Tartrate 1 drop 01/25/18 13:00 01/27/18 10:05 Alphagan 0.2% - OU 1 drop BID MARK Administration Sodium Chloride 1,000 mls @ 100 mls/hr 01/24/18 07:45 01/27/18 09:58 Normal Saline - IV Not Given ASDIR MARK Insulin Aspart 1 vial 01/24/18 10:00 01/27/18 09:59 Novolog Vial Sliding Scale - SQ Not Given Q4HPO [facility] Protocol Latanoprost 1 drop 01/25/18 22:00 01/26/18 22:01 Xalatan 0.005% Eye Drops - OU 1 drop HS MARK Administration Magnesium Sulfate 2 gm 01/27/18 11:16 Magnesium Sulfate IVPB 01/27/18 11:17 ONCE ONE Metoprolol Tartrate 5 mg 01/24/18 07:35 01/27/18 06:16 Lopressor Injection - IVPUSH 5 mg Q4H PRN Administration HYPERTENSION Timolol Maleate 1 drop 01/25/18 13:00 01/27/18 10:05 Timoptic 0.5% OU 1 drop BID MARK Administration Assessment: 77 year old female with PMHx of left breast cancer (s/p lumpectomy, chemo, radiation therapy in 1999), open heart surgery (2009), x2 (1973 ,1974), laproscopic ovarian cyst removal 1999, DM, hyperlipidemia, HTN, admitted with abdominal pain, nausea, vomiting. Plan: 1. SBO - Family refusing Abd xray, would like CTAP - Defer to surgery for further imaging - If obstruction not resolved will likely need surgery - Maintain NGT to suction - NPO - Pain management - IV fluids 2. DM II - BGM, ISS, ACHS 3. HTN - Hold fluids this AM d/t elevated BP - Change to d5 /2 ns - Continue Lopressor 5mg IVP q4h prn if SBP >160 - Will resume oral Lopressor once tolerating po 4. DVT ppx - Hold all chemical DVT prophylaxis until evaluated by surgery - SCDs bilaterally CODE STATUS: FULL CODE Visit type - Emergency Visit Emergency Visit: Yes ED Registration Date: 01/24/18 Care time: The patient presented to the Emergency Department on the above date and was hospitalized for further evaluation of their emergent condition. - New Patient This patient is new to me today: No - Critical Care Critical Care patient: No
[2018-01-27] MEDS ORDERED: DEXTROSE 5%-0.45% SALINE 1,000 ML IV SCH (11:30)
[2018-01-27] MEDS: MAGNESIUM 1GM/D5W - 1 GM/100 ML IVPB IVPB SCH ×2 (12:24→13:23)
--- NOTE | 2018-01-27 13:41 | PN ---
Progress Note, Physician Chief Complaint: vomiting History of Present Illness: 77 yo female with PMH of left breast cancer (s/p lumpectomy, chemo, radiation therapy in 1999), open heart surgery (2009), x2 (1973,1974), laproscopic ovarian cyst removal 1999, DM, hyperlipidemia, HTN, presented with abdominal pain, nausea, vomiting that began the previous day. NGT is draining feculant material, she has not had regular flatus or BM yet. - Current Medication List Current Medications: Active Medications Benzocaine/Butamben/Tetracaine HCl (Cetacaine [place] -) 1 spray TP DAILY [facility] Last Admin: 01/27/18 10:05 Dose: 1 spray Benzocaine/Menthol (Cepacol Lozenge -) 1 each MM PRN PRN PRN Reason: SORE THROAT Last Admin: 01/27/18 10:08 Dose: 1 each Brimonidine Tartrate (Alphagan 0.2% -) 1 drop OU BID [facility] Last Admin: 01/27/18 10:05 Dose: 1 drop Dextrose/Sodium Chloride (D5-1/2ns -) 1,000 mls @ 83 mls/hr IV ASDIR MARK Last Admin: 01/27/18 12:09 Dose: 83 mls/hr Magnesium Sulfate/Dextrose (Magnesium 1gm/D5w -) 1 gm in 100 mls @ 100 mls/hr IVPB Q1H MARK Stop: 01/27/18 13:44 Last Admin: 01/27/18 13:23 Dose: 100 mls/hr Insulin Aspart (Novolog Vial Sliding Scale -) 1 vial SQ ACHS MARK PRN Reason: Protocol Latanoprost (Xalatan 0.005% Eye Drops -) 1 drop OU HS [facility] Last Admin: 01/26/18 22:01 Dose: 1 drop Metoprolol Tartrate (Lopressor Injection -) 5 mg IVPUSH Q4H PRN PRN Reason: HYPERTENSION Last Admin: 01/27/18 06:16 Dose: 5 mg Timolol Maleate (Timoptic 0.5%) 1 drop OU BID [facility] Last Admin: 01/27/18 10:05 Dose: 1 drop - Objective Vital Signs: Vital Signs Temperature 98.9 F 01/27/18 10:00 Pulse Rate 79 01/27/18 10:00 Respiratory Rate 18 01/27/18 10:00 Blood Pressure 152/86 01/27/18 10:00 O2 Sat by Pulse Oximetry (%) 100 01/26/18 21:00 Vital Signs Period Temp Pulse Resp BP Sys/Shipley Pulse Ox Last 24 Hr 97.8 F-99.8 F 74-84 18-20 152-190/76-104 100 Intake & Output 01/26/18 01/27/18 01/27/18 23:59 07:59 15:59 Intake Total 450 750 0 Output Total 800 Balance 450 -50 0 Intake: IV 400 700 Normal Saline - 1,000 ml 400 700 @ 100 mls/hr IV ASDIR MARK Rx#:[id number] IVPB 50 50 Oral 0 Output: Gastric Drainage 800 Other: Voiding Method Toilet Toilet # Unmeasured Voids Void 2 Constitutional: Yes: Calm, Mild Distress Eyes: Yes: Conjunctiva Clear, EOM Intact HENT: Yes: Atraumatic, Normocephalic Neck: Yes: Supple, Trachea Midline Cardiovascular: Yes: Regular Rate and Rhythm, S1, S2 Respiratory: Yes: Regular, CTA Bilaterally Gastrointestinal: Yes: Normal Bowel Sounds, Soft, Abdomen, Obese ...Rectal Exam: Yes: Deferred Genitourinary: No: CVA Tenderness - Left, CVA Tenderness - Right Extremities: No: Cool, Cyanosis Edema: No Peripheral Pulses WNL: Yes Peripheral Pulses: Left Doralis Pedis: 2+, Right Dorsalis Pedis: 2+ Integumentary: No: Jaundice, Rash Neurological: Yes: Alert, Oriented Psychiatric: Yes: Alert, Oriented Labs: CBC, BMP 01/26/18 06:15 01/27/18 06:49 Problem List - Problems (1) SBO (small bowel obstruction) Assessment/Plan: 77yo female MMP and multiple abdominal procedures presenting with 1 day of abdominal pain and vomiting. NGT still very high output 800-900 per shift. No signs of peritonitis. Large bowel movement reported with some relief of abdominal pain. Ct scan with po contrast shows flow through of contrast and resolution of obstruction Clear liquids IVF hydration Antiematic therapy Trend labs glycemic control Plan for discharge Code(s): K56.609 - UNSP INTESTNL OBST, UNSP TO PARTIAL VERSUS COMPLETE OBST (2) Vomiting in adult patient Code(s): R11.10 - VOMITING, UNSPECIFIED (3) Diabetes Code(s): E11.9 - TYPE 2 DIABETES MELLITUS WITHOUT COMPLICATIONS Qualifiers: Diabetes mellitus type: type 2 Diabetes mellitus complication status: without complication (4) HTN (hypertension) Code(s): I10 - ESSENTIAL (PRIMARY) HYPERTENSION (5) HLD (hyperlipidemia) Code(s): E78.5 - HYPERLIPIDEMIA, UNSPECIFIED
[2018-01-27] MEDS ORDERED: LACTATED RINGERS SOLUTION 1,000 ML/1,000 ML INFUS.BAG IV SCH (17:30)
[2018-01-27] MEDS: ELECTROLYTE-148 SOLN 1,000 ML IV SCH (19:20)
[2018-01-27] MEDS: LATANOPROST 0.005% OPHTH SOLN 2.5ML BOTTLE OU SCH (21:43)
[2018-01-28] MEDS: morphine SULFATE 4 MG/ML VIAL IVPUSH PRN (00:08)
[2018-01-28] MEDS: ELECTROLYTE-148 SOLN 1,000 ML IV SCH ×2 (04:00→21:24)
[2018-01-28] MEDS: INSULIN SLIDING SCALE (NOVOLOG) 1 VIAL SQ SCH ×4 (06:03→22:50)
[2018-01-28] MEDS: METOPROLOL TARTRATE 5 MG/5 ML VIAL IVPUSH PRN (07:06)
[2018-01-28 08:09] LABS: ANION GAP 14 (8-16); BLOOD UREA NITROGEN 16 mg/dL (7-18); CALCIUM 9.4 mg/dL (8.5-10.1); CHLORIDE 100 mmol/L (98-107); CO2 26 mmol/L (21-32); CREATININE 0.4 mg/dL (0.55-1.02); GLUCOSE,RANDOM 168 mg/dL (74-106); MAGNESIUM 1.7 mg/dL (1.8-2.4); POTASSIUM 3.6 mmol/L (3.5-5.1); SODIUM 140 mmol/L (136-145)
[2018-01-28] MEDS ORDERED: MAGNESIUM SULF 50% (8.12 MEQ/2 ML-1 GM VIAL) IVPB ONE (08:40)
--- NOTE | 2018-01-28 08:42 | PN ---
Physical Exam: SUBJECTIVE: Patient seen and examined. PT is feeling much better this AM. She states had a large BM and passed a lot of gas. OBJECTIVE: Vital Signs Period Temp Pulse Resp BP Sys/Shipley Pulse Ox Last 24 Hr 98.4 F-99.1 F 70-111 18-20 152-177/74-100 100-100 PE Neuro: alert, awake, cn 2-12intact HEENT: NGT brown outpt, off suction Pulm: CTAB CV: s1 s2 rrr no mrg Abd: s nt + bS Ext: warm, no le edema Laboratory Results - last 24 hr 01/27/18 01/28/18 01/28/18 21:01 05:48 06:30 Sodium 140 Potassium 3.6 Chloride 100 Carbon Dioxide 26 Anion Gap 14 BUN 16 Creatinine 0.4 L Creat Clearance w eGFR POC Glucometer 130 178 Random Glucose 168 H Calcium 9.4 Phosphorus Magnesium 1.7 L Total Bilirubin AST ALT Alkaline Phosphatase Total Protein Albumin Active Medications Generic Name Dose Route Start Last Admin Trade Name Freq PRN Reason Stop Dose Admin Benzocaine/Butamben/Tetracaine HCl 1 spray 01/25/18 16:00 01/27/18 10:05 Cetacaine [place] - TP 1 spray DAILY MARK Administration Benzocaine/Menthol 1 each 01/25/18 14:50 01/27/18 10:08 Cepacol Lozenge - MM 1 each PRN PRN Administration SORE THROAT Brimonidine Tartrate 1 drop 01/25/18 13:00 01/27/18 21:44 Alphagan 0.2% - OU 1 drop BID MARK Administration Parenteral Electrolytes 1,000 mls @ 100 mls/hr 01/27/18 19:15 01/28/18 04:00 Plasma-Lyte 148 - IV 100 mls/hr ASDIR MARK Administration Insulin Aspart 1 vial 01/27/18 16:30 01/28/18 06:03 Novolog Vial Sliding Scale - SQ Not Given ACHS MARK Protocol Latanoprost 1 drop 01/25/18 22:00 01/27/18 21:43 Xalatan 0.005% Eye Drops - OU 1 drop HS MARK Administration Magnesium Sulfate 2 gm 01/28/18 08:40 Magnesium Sulfate IVPB 01/28/18 08:41 ONCE ONE Metoprolol Tartrate 5 mg 01/24/18 07:35 01/28/18 07:06 Lopressor Injection - IVPUSH 5 mg Q4H PRN Administration HYPERTENSION Morphine Sulfate 4 mg 01/27/18 17:25 01/28/18 00:08 Morphine Sulfate IVPUSH 4 mg Q4H PRN Administration PAIN LEVEL 7 - 10 Timolol Maleate 1 drop 01/25/18 13:00 01/27/18 21:44 Timoptic 0.5% OU 1 drop BID MARK Administration Assessment: 77 year old female with PMHx of left breast cancer (s/p lumpectomy, chemo, radiation therapy in 1999), open heart surgery (2009), x2 (1973 ,1974), laproscopic ovarian cyst removal 1999, DM, hyperlipidemia, HTN, admitted with abdominal pain, nausea, vomiting. Plan: 1. SBO - CTAP w/ po contrast today - Pending reading, will go for surgery today or tomorrow - Maintain NGT - Continue IVF 2. DM II - BGM, ISS, ACHS 3. HTN - Change to d5 1/2 ns - Continue Lopressor 5mg IVP q4h prn if SBP >160 - Will resume oral Lopressor once tolerating po 4. DVT ppx - Hold all chemical DVT prophylaxis until evaluated by surgery - SCDs bilaterally 5. Hypomagnesemia - Replete 2gm IV x1 CODE STATUS: FULL CODE Visit type - Emergency Visit Emergency Visit: Yes ED Registration Date: 01/24/18 Care time: The patient presented to the Emergency Department on the above date and was hospitalized for further evaluation of their emergent condition. - New Patient This patient is new to me today: No - Critical Care Critical Care patient: No
--- NOTE | 2018-01-28 08:45 | PN ---
Progress Note, Physician Chief Complaint: vomiting History of Present Illness: 77 yo female with PMH of left breast cancer (s/p lumpectomy, chemo, radiation therapy in 1999), open heart surgery (2009), x2 (1973,1974), laproscopic ovarian cyst removal 1999, DM, hyperlipidemia, HTN, presented with abdominal pain, nausea, vomiting that began the previous day. NGT is draining feculant material, she has not had regular flatus or BM yet. - Current Medication List Current Medications: Active Medications Benzocaine/Butamben/Tetracaine HCl (Cetacaine [place] -) 1 spray TP DAILY [facility] Last Admin: 01/27/18 10:05 Dose: 1 spray Benzocaine/Menthol (Cepacol Lozenge -) 1 each MM PRN PRN PRN Reason: SORE THROAT Last Admin: 01/27/18 10:08 Dose: 1 each Brimonidine Tartrate (Alphagan 0.2% -) 1 drop OU BID [facility] Last Admin: 01/27/18 21:44 Dose: 1 drop Parenteral Electrolytes (Plasma-Lyte 148 -) 1,000 mls @ 100 mls/hr IV ASDIR [facility] Last Admin: 01/28/18 04:00 Dose: 100 mls/hr Magnesium Sulfate (Magnesium Sulf 2 G/50 Ml Bag) 2 gm in 50 mls @ 50 mls/hr IVPB ONCE ONE Stop: 01/28/18 10:14 Insulin Aspart (Novolog Vial Sliding Scale -) 1 vial SQ ACHS MARK PRN Reason: Protocol Last Admin: 01/28/18 06:03 Dose: Not Given Latanoprost (Xalatan 0.005% Eye Drops -) 1 drop OU HS [facility] Last Admin: 01/27/18 21:43 Dose: 1 drop Metoprolol Tartrate (Lopressor Injection -) 5 mg IVPUSH Q4H PRN PRN Reason: HYPERTENSION Last Admin: 01/28/18 07:06 Dose: 5 mg Morphine Sulfate (Morphine Sulfate) 4 mg IVPUSH Q4H PRN PRN Reason: PAIN LEVEL 7 - 10 Last Admin: 01/28/18 00:08 Dose: 4 mg Timolol Maleate (Timoptic 0.5%) 1 drop OU BID [facility] Last Admin: 01/27/18 21:44 Dose: 1 drop - Objective Vital Signs: Vital Signs Temperature 99 F 01/28/18 06:00 Pulse Rate 78 01/28/18 07:06 Respiratory Rate 20 01/28/18 06:00 Blood Pressure 177/100 01/28/18 07:06 O2 Sat by Pulse Oximetry (%) 100 01/27/18 21:00 Vital Signs Period Temp Pulse Resp BP Sys/Shipley Pulse Ox Last 24 Hr 98.4 F-99.1 F 70-111 18-20 152-177/74-100 100-100 Constitutional: Yes: Well Nourished, No Distress, Calm Eyes: Yes: Conjunctiva Clear, EOM Intact HENT: Yes: Atraumatic, Normocephalic Neck: Yes: Supple, Trachea Midline Cardiovascular: Yes: Regular Rate and Rhythm, S1, S2 Respiratory: Yes: Regular, CTA Bilaterally Gastrointestinal: Yes: Normal Bowel Sounds, Soft, Abdomen, Obese. No: Tenderness Extremities: No: Cool, Cyanosis Edema: No Peripheral Pulses WNL: Yes Peripheral Pulses: Left Doralis Pedis: 2+, Right Dorsalis Pedis: 2+ Neurological: Yes: Alert, Oriented Psychiatric: Yes: Alert, Oriented Labs: CBC, BMP 01/26/18 06:15 01/28/18 06:30 - ....Imaging Cat Scan: Report Reviewed, Image Reviewed (reseolving partial sbo, contrast in the rectum) Problem List - Problems (1) SBO (small bowel obstruction) Assessment/Plan: 77yo female MMP and multiple abdominal procedures presenting with 1 day of abdominal pain and vomiting. NGT still very high output 800-900 per shift proir to CT scan. No signs of peritonitis. Large bowel movement reported with some relief of abdominal pain. Ct scan with po contrast shows flow through of contrast to rectum. passing contrast UT Advance diet as tolerated Trend labs glycemic control Bowel regimen She does not require surgical followup Discharge at the discretion of primary team Code(s): K56.609 - UNSP INTESTNL OBST, UNSP TO PARTIAL VERSUS COMPLETE OBST (2) Vomiting in adult patient Code(s): R11.10 - VOMITING, UNSPECIFIED (3) Diabetes Code(s): E11.9 - TYPE 2 DIABETES MELLITUS WITHOUT COMPLICATIONS Qualifiers: Diabetes mellitus type: type 2 Diabetes mellitus complication status: without complication (4) HTN (hypertension) Code(s): I10 - ESSENTIAL (PRIMARY) HYPERTENSION (5) HLD (hyperlipidemia) Code(s): E78.5 - HYPERLIPIDEMIA, UNSPECIFIED
[2018-01-28] MEDS ORDERED: MAGNESIUM SULFATE IN WATER 2 GM/50 ML IVPB IVPB ONE (09:15)
[2018-01-28] MEDS ORDERED: PT OWN MED DRAWER 7, Y5N ONE (11:39)
[2018-01-28] MEDS: TIMOLOL 0.5% OPHTHALMIC SOL 5 ML BOTTLE OU SCH ×2 (11:44→21:26)
[2018-01-28] MEDS: BRIMONIDINE TARTRATE 0.2% OPHTHALMIC 5 ML BOTTLE OU SCH ×2 (11:44→21:27)
[2018-01-28] MEDS: TETRACAINE/BENZOCAINE/BUTAMBEN 20 GM SPR TP SCH (12:30)
[2018-01-28] MEDS ORDERED: METOPROLOL TARTRATE 25 MG TABLET (FP) PO SCH (17:30)
[2018-01-28] MEDS: LATANOPROST 0.005% OPHTH SOLN 2.5ML BOTTLE OU SCH (21:27)
[2018-01-29] MEDS: ELECTROLYTE-148 SOLN 1,000 ML IV SCH (04:44)
[2018-01-29] MEDS: INSULIN SLIDING SCALE (NOVOLOG) 1 VIAL SQ SCH ×2 (06:14→12:00)
[2018-01-29 07:38] LABS: CHLORIDE 102 mmol/L (98-107); SODIUM 141 mmol/L (136-145)
[2018-01-29 07:47] LABS: ANION GAP 17 (8-16); BLOOD UREA NITROGEN 7 mg/dL (7-18); CO2 22 mmol/L (21-32); CREATININE < 0.2 mg/dL (0.55-1.02); GLUCOSE,RANDOM 139 mg/dL (74-106); MAGNESIUM 2.5 mg/dL (1.8-2.4); PHOSPHOROUS 1.8 mg/dL (2.5-4.9)
[2018-01-29 08:26] LABS: CALCIUM 6.4 mg/dL (8.5-10.1)
--- NOTE | 2018-01-29 09:04 | PN ---
Progress Note, Physician Chief Complaint: vomiting History of Present Illness: 77 yo female with PMH of left breast cancer (s/p lumpectomy, chemo, radiation therapy in 1999), open heart surgery (2009), x2 (1973,1974), laproscopic ovarian cyst removal 1999, DM, hyperlipidemia, HTN, presented with abdominal pain, nausea, vomiting that began the previous day. Now tolerating clear diet with ensure. stable no vomiting. Passing BM and flatus. - Current Medication List Current Medications: Active Medications Benzocaine/Butamben/Tetracaine HCl (Cetacaine [place] -) 1 spray TP DAILY [facility] Last Admin: 01/28/18 12:30 Dose: Not Given Benzocaine/Menthol (Cepacol Lozenge -) 1 each MM PRN PRN PRN Reason: SORE THROAT Last Admin: 01/27/18 10:08 Dose: 1 each Brimonidine Tartrate (Alphagan 0.2% -) 1 drop OU BID [facility] Last Admin: 01/28/18 21:27 Dose: 1 drop Calcitriol (Rocaltrol -) 0.25 mcg PO DAILY [facility] Parenteral Electrolytes (Plasma-Lyte 148 -) 1,000 mls @ 100 mls/hr IV ASDIR [facility] Last Admin: 01/29/18 04:44 Dose: 100 mls/hr Insulin Aspart (Novolog Vial Sliding Scale -) 1 vial SQ ACHS MARK PRN Reason: Protocol Last Admin: 01/29/18 06:14 Dose: Not Given Latanoprost (Xalatan 0.005% Eye Drops -) 1 drop OU HS [facility] Last Admin: 01/28/18 21:27 Dose: 1 drop Metoprolol Tartrate (Lopressor Injection -) 5 mg IVPUSH Q4H PRN PRN Reason: HYPERTENSION Last Admin: 01/28/18 07:06 Dose: 5 mg Metoprolol Tartrate (Lopressor -) 25 mg PO BID [facility] Morphine Sulfate (Morphine Sulfate) 4 mg IVPUSH Q4H PRN PRN Reason: PAIN LEVEL 7 - 10 Last Admin: 01/28/18 00:08 Dose: 4 mg Potassium Phos/Sodium Phos (Phos-Nak Packet -) 1 packet PO TID [facility] Timolol Maleate (Timoptic 0.5%) 1 drop OU BID [facility] Last Admin: 05/03/18 21:26 Dose: 1 drop - Objective Vital Signs: Vital Signs Temperature 98.6 F 01/29/18 04:00 Pulse Rate 60 01/29/18 04:00 Respiratory Rate 18 01/29/18 04:00 Blood Pressure 177/66 01/29/18 04:00 O2 Sat by Pulse Oximetry (%) 95 01/28/18 21:00 Vital Signs Period Temp Pulse Resp BP Sys/[place] Pulse Ox Last 24 Hr 98.2 F-99.5 F 60-88 18-20 140-177/58-90 95 Constitutional: Yes: Well Nourished, No Distress, Calm Eyes: Yes: Conjunctiva Clear, EOM Intact HENT: Yes: Atraumatic, Normocephalic Neck: Yes: Supple, Trachea Midline Cardiovascular: Yes: Regular Rate and Rhythm, S1, S2 Respiratory: Yes: Regular, CTA Bilaterally Gastrointestinal: Yes: Normal Bowel Sounds, Soft ...Rectal Exam: Yes: Deferred Genitourinary: No: CVA Tenderness - Left, CVA Tenderness - Right Musculoskeletal: No: Muscle Pain, Muscle Weakness Extremities: No: Cool, Cyanosis Edema: No Peripheral Pulses WNL: Yes Peripheral Pulses: Left Doralis Pedis: 2+, Right Dorsalis Pedis: 2+ Neurological: Yes: Alert, Oriented Psychiatric: Yes: Alert, Oriented Labs: CBC, BMP 01/26/18 06:15 01/29/18 05:35 Problem List - Problems (1) SBO (small bowel obstruction) Assessment/Plan: 77yo female MMP and multiple abdominal procedures presenting with 1 day of abdominal pain and vomiting. Large bowel movement reported with some relief of abdominal pain. Ct scan with po contrast shows flow through of contrast to rectum. passing contrast ND Advance diet as tolerated glycemic control Bowel regimen She does not require surgical followup Discharge at the discretion of primary team Code(s): K56.609 - UNSP INTESTNL OBST, UNSP TO PARTIAL VERSUS COMPLETE OBST (2) Vomiting in adult patient Code(s): R11.10 - VOMITING, UNSPECIFIED (3) Diabetes Code(s): E11.9 - TYPE 2 DIABETES MELLITUS WITHOUT COMPLICATIONS Qualifiers: Diabetes mellitus type: type 2 Diabetes mellitus complication status: without complication (4) HTN (hypertension) Code(s): I10 - ESSENTIAL (PRIMARY) HYPERTENSION (5) HLD (hyperlipidemia) Code(s): E78.5 - HYPERLIPIDEMIA, UNSPECIFIED
[2018-01-29] MEDS ORDERED: CALCITRIOL 0.25 MCG CAPSULE (FP) PO SCH (10:00)
[2018-01-29] MEDS ORDERED: METOPROLOL TARTRATE 25 MG TABLET (FP) PO SCH (10:00)
[2018-01-29] MEDS ORDERED: PT OWN MED DRAWER 7, Y5N ONE ×2 (10:32→15:48)
[2018-01-29] MEDS: TETRACAINE/BENZOCAINE/BUTAMBEN 20 GM SPR TP SCH (10:35)
[2018-01-29] MEDS: BRIMONIDINE TARTRATE 0.2% OPHTHALMIC 5 ML BOTTLE OU SCH (10:35)
[2018-01-29] MEDS: TIMOLOL 0.5% OPHTHALMIC SOL 5 ML BOTTLE OU SCH (10:35)
[2018-01-29 11:13] VITALS: BP 152/100; PULSE 75; TEMP 98.2
[2018-01-29] MEDS ORDERED: NAPH,MB-DB/K PH,MBDB POWDER PACKET PO SCH (14:00)
--- NOTE | 2018-01-29 15:24 | DS ---
Physical Exam: SUBJECTIVE: Patient seen and examined OBJECTIVE: Vital Signs Period Temp Pulse Resp BP Sys/Shipley Pulse Ox Last 24 Hr 98.2 F-99.5 F 60-86 18-20 140-177/58-100 95-98 PHYSICAL EXAM GENERAL: The patient is awake, alert, and fully oriented, in no acute distress. HEAD: Normal with no signs of trauma. EYES: PERRL, extraocular movements intact, sclera anicteric, conjunctiva clear. ENT: Ears normal, nares patent, oropharynx clear without exudates, moist mucous membranes. NECK: Trachea midline, full range of motion, supple. LUNGS: Breath sounds equal, clear to auscultation bilaterally, no wheezes, no crackles, no accessory muscle use. HEART: Regular rate and rhythm, S1, S2 without murmur, rub or gallop. ABDOMEN: Soft, nontender, nondistended, normoactive bowel sounds, no guarding, no rebound, no hepatosplenomegaly, no masses. EXTREMITIES: 2+ pulses, warm, well-perfused, no edema. NEUROLOGICAL: Cranial nerves II through XII grossly intact. Normal speech, gait not observed. PSYCH: Normal mood, normal affect. SKIN: Warm, dry, normal turgor, no rashes or lesions noted. LABS Laboratory Results - last 24 hr 01/28/18 01/28/18 01/29/18 17:30 22:47 05:35 Sodium 141 Potassium 4.0 Chloride 102 Carbon Dioxide 22 Anion Gap 17 H BUN 7 Creatinine < 0.2 L POC Glucometer 280 193 Random Glucose 139 H Calcium 6.4 L* Phosphorus 1.8 L Magnesium 2.5 H 01/29/18 01/29/18 06:10 11:42 Sodium Potassium Chloride Carbon Dioxide Anion Gap BUN Creatinine POC Glucometer 181 395 Random Glucose Calcium Phosphorus Magnesium HOSPITAL COURSE: Date of Admission:01/24/18 Date of Discharge: 01/29/18 Discharge Summary Reason For Visit: SMALL BOWEL OBSTRUCTION Current Active Problems Diabetes (Acute) HLD (hyperlipidemia) (Acute) HTN (hypertension) (Acute) SBO (small bowel obstruction) (Acute) Vomiting in adult patient (Acute) Condition: Improved - Instructions Diet, Activity, Other Instructions: Mrs Sierra Please continue your home medications as you were doing. Your calcium and phosphorus levels were low during your hospitalization and we have sent you supplements to your pharmacy. Please have your primary care doctor repeat your lab work when you see him so that he can repeat your bloodwork. We recommend that you see your primary care physician within one week of discharge. Please call me with any questions. Kimberly Chandra, WILLARD [phone] [facility] Referrals: Kris Moreno MD [Primary Care Provider] - 1 Week Disposition: HOME - Home Medications Comprehensive Discharge Medication List: Ambulatory Orders Aspirin [ASA -] 81 mg PO DAILY 01/24/18 Combigan 0.2%-0.5% Eye Drops 1 drop OU BID 01/24/18 Insulin Glargine,Hum.rec.anlog [Lantus] 40 unit SQ HS 01/24/18 Lumigan 1 drop OU HS 01/24/18 Metformin HCl [Metformin HCl ER] 1,000 mg PO DAILY 01/24/18 Metoprolol Tartrate 25 mg PO DAILY 01/24/18 Simvastatin 20 mg PO DAILY 01/24/18 Brimonidine Tartrate [Alphagan 0.2% -] 1 drop OU BID drops 01/29/18 Calcitriol [Calcitriol -] 0.25 mcg PO DAILY #15 capsule 01/29/18 Naph,Mb-Db/K pH,Mbdb [PHOS-NaK PACKET -] 1 packet PO TID #90 pow 01/29/18 Tetracaine/Benzocaine/Butamben [Cetacaine [place] -] 1 spray TP DAILY bottle 01/13
== END 2018-01-29 15:53 | disposition home or self-care (01) | DRG 390 ==
LOC: JER 00:56 → JERBED 06:19 → J8W 09:50
PROVIDERS: ADMIT Internal Medicine; ATTEND Nurse Practitioner Family
PROC: 0D9670Z Drainage of Stomach with Drainage Device, Via Natural or Artificial Opening (ICD-10-PCS; principal; 2018-01-24)
DX: K56.699 Other intestinal obstruction unspecified as to partial versus complete obstruction (principal); E78.5 Hyperlipidemia, unspecified; I10 Essential (primary) hypertension; E11.9 Type 2 diabetes mellitus without complications; R11.10 Vomiting, unspecified; E83.42 Hypomagnesemia; E83.39 Other disorders of phosphorus metabolism; N30.90 Cystitis, unspecified without hematuria; E83.51 Hypocalcemia; Z95.1 Presence of aortocoronary bypass graft; Z85.3 Personal history of malignant neoplasm of breast
CPT/HCPCS: 36415; 71045-TC-FY; 74019-TC-FY; 74176-TC; 74177-TC; 80048; 80053; 81003; 81015; 82962; 83735; 84100; 85025; 85027; 86850; 86900; 86901; 93005; 93010; 99283-25; J0131; J7030

== ENCOUNTER 2020-11-27 13:38 | Inpatient (IN) | payer OTHER ==
[2020-11-27 13:43] VITALS: BMI 24.0
[2020-11-27 14:48] LABS: BASO % 0.3 % (0-2.0); EOS % 4.1 % (0-4.5); HEMATOCRIT 36.5 % (32.4-45.2); HEMOGLOBIN 12.1 GM/dL (10.7-15.3); LYMPH % 27.5 % (8-40); MCHC 33.1 g/dl (32.0-36.0); MEAN CELL VOLUME 84.6 fl (80-96); NEUT % 59.1 % (42.8-82.8); PLATELET COUNT 145 K/MM3 (134-434); RBC 4.32 M/mm3 (3.60-5.2); RDW 13.6 % (11.6-15.6); WHITE BLOOD COUNT 6.6 K/mm3 (4.0-10.0)
[2020-11-27 14:57] LABS: INR 0.99 (0.83-1.09); PROTHROMBIN TIME (PATIENT) 12.2 SEC (9.7-13.0)
[2020-11-27 15:00] LABS: ACTIVATED PTT 29.7 SECONDS (25.2-36.5)
[2020-11-27 15:02] LABS: CHLORIDE 102 mmol/L (98-107); POTASSIUM 4.7 mmol/L (3.5-5.1); SODIUM 136 mmol/L (136-145)
[2020-11-27 15:06] LABS: ALBUMIN 3.8 g/dl (3.4-5.0); ANION GAP 7 MMOL/L (8-16); CALCIUM 10.4 mg/dL (8.5-10.1); CO2 27 mmol/L (21-32); GLUCOSE,RANDOM 289 mg/dL (74-106)
[2020-11-27 15:10] LABS: CREATININE 0.7 mg/dL (0.55-1.3); SGPT/ALT 31 U/L (13-61)
[2020-11-27 15:11] LABS: BILIRUBIN,TOTAL 0.6 mg/dL (0.2-1); TOT PROT 7.3 g/dl (6.4-8.2)
[2020-11-27 15:12] LABS: ALK PHOS 59 U/L (45-117); SGOT/AST 16 U/L (15-37)
[2020-11-27] MEDS ORDERED: ASPIRIN 81 MG CHEWABLE TABLETS PO ONE (15:52)
[2020-11-27] MEDS ORDERED: ASPIRIN 81 MG CHEWABLE TABLETS ONE (16:04)
[2020-11-27] MEDS ORDERED: ACETAMINOPHEN 1000 MG/100 ML VIAL (NON FORMULARY) IVPB ONE (18:44)
[2020-11-27] MEDS ORDERED: FAMOTIDINE 20 MG/50 ML IVPB 20 MG/50 ML MG IVPB ONE ×2 (18:44→18:54)
[2020-11-27] MEDS ORDERED: ACETAMINOPHEN INJECTION 100 ML IVPB ONE (18:53)
[2020-11-27] MEDS: INSULIN SLIDING SCALE (NOVOLOG) 1 VIAL SQ SCH (22:47)
[2020-11-27] MEDS ORDERED: amLODIPine BESYLATE 5 MG TABLET (FP) PO ONE (22:50)
[2020-11-28 07:06] LABS: BASO % 0.4 % (0-2.0); HEMATOCRIT 34.6 % (32.4-45.2); HEMOGLOBIN 11.9 GM/dL (10.7-15.3); LYMPH % 37.3 % (8-40); MCH 28.4 pg (25.7-33.7); MCHC 34.4 g/dl (32.0-36.0); MEAN CELL VOLUME 82.4 fl (80-96); MEAN PLT VOLUME 8.5 fl (7.5-11.1); MONO % 9.6 % (3.8-10.2); NEUT % 46.7 % (42.8-82.8); PLATELET COUNT 131 K/MM3 (134-434); RDW 13.6 % (11.6-15.6); WHITE BLOOD COUNT 5.4 K/mm3 (4.0-10.0)
[2020-11-28 07:53] LABS: ALBUMIN 3.4 g/dl (3.4-5.0); BLOOD UREA NITROGEN 14.1 mg/dL (7-18); CALCIUM 9.8 mg/dL (8.5-10.1); MAGNESIUM 1.2 mg/dL (1.8-2.4)
[2020-11-28 07:56] LABS: CREATININE 0.6 mg/dL (0.55-1.3); PHOSPHOROUS 3.1 mg/dL (2.5-4.9)
[2020-11-28 07:57] LABS: BILIRUBIN,TOTAL 0.4 mg/dL (0.2-1)
[2020-11-28 07:58] LABS: TOT PROT 6.5 g/dl (6.4-8.2)
[2020-11-28 08:31] LABS: POTASSIUM 4.2 mmol/L (3.5-5.1)
[2020-11-28] MEDS ORDERED: ATORVASTATIN CA 10 MG TABLET (FP) ONE (09:25)
[2020-11-28] MEDS ORDERED: ASPIRIN 81 MG CHEWABLE TABLETS ONE (09:25)
[2020-11-28] MEDS ORDERED: ENOXAPARIN NA (PORCINE) 40 MG/0.4 ML DISP.SYRIN SQ ONE (09:26)
[2020-11-28] MEDS: INSULIN SLIDING SCALE (NOVOLOG) 1 VIAL SQ SCH ×2 (09:46→12:55)
[2020-11-28 09:48] VITALS: TEMP 97.9
[2020-11-28] MEDS ORDERED: INSULIN (LEVEMIR) 100 UNITS/ML UNITS SQ ONE (09:52)
[2020-11-28] MEDS ORDERED: LOSARTAN POTASSIUM 50 MG TABLET PO ONE (09:54)
[2020-11-28] MEDS ORDERED: METOPROLOL TARTRATE 25 MG TABLET (FP) PO SCH (10:00)
[2020-11-28] MEDS ORDERED: ASPIRIN 81 MG CHEWABLE TABLETS PO SCH (10:00)
[2020-11-28] MEDS ORDERED: ATORVASTATIN CA 10 MG TABLET (FP) PO SCH (10:00)
[2020-11-28] MEDS ORDERED: ENOXAPARIN NA (PORCINE) 40 MG/0.4 ML DISP.SYRIN SQ SCH (10:00)
[2020-11-28] MEDS ORDERED: LOSARTAN POTASSIUM 50 MG TABLET ONE (10:59)
[2020-11-28 15:10] VITALS: BP 139/66; PULSE 79
== END 2020-11-28 15:15 | disposition home or self-care (01) | DRG 313 ==
LOC: JER 13:38 → JERBED 15:56 → OBSVTOIN 16:55
PROVIDERS: ADMIT Internal Medicine; ATTEND Internal Medicine
DX: R07.89 Other chest pain (principal); E11.9 Type 2 diabetes mellitus without complications; E78.5 Hyperlipidemia, unspecified; I10 Essential (primary) hypertension; I25.10 Atherosclerotic heart disease of native coronary artery without angina pectoris; R11.10 Vomiting, unspecified; I45.10 Unspecified right bundle-branch block; Z95.1 Presence of aortocoronary bypass graft; Z85.3 Personal history of malignant neoplasm of breast; Z79.4 Long term (current) use of insulin
CPT/HCPCS: 36415; 71045-TC-FY; 80053; 80061; 82550; 82962; 83036; 83721; 83735; 84100; 84443; 84484; 85025; 85610; 85730; 93005; 93010; 93306-TC; 96365; 96372; 96375; 99285-25; C9803; G0378; J0131; U0003